=== PATIENT | male | born 1935 | race Hispanic/Latino ===

== ENCOUNTER 2017-10-16 08:57 | Emergency (ER) | payer MEDICARE ==
[2017-10-16 09:05] VITALS: TEMP 97; O2SAT 98; BMI 29.5
--- NOTE | 2017-10-16 10:03 | ED PDOC ---
HPI: General Adult Time Seen by Provider: 10/16/17 09:10 Chief Complaint (Nursing): Dizziness/Lightheaded Chief Complaint (Provider): Dizziness History Per: Patient History/Exam Limitations: no limitations Onset/Duration Of Symptoms: Days (x3), Worse Since (onset) Current Symptoms Are (Timing): Still Present Additional Complaint(s): Anirudh Hazel is a 81 year old male, with a past medical history of hypercholesterolemia and HTN, who presents to the emergency department complaining of a worsening dizziness onset for x3 days. Patient describes symptoms as feeling like his head is empty and a heat wave coming from feet up towards head. Patient reports he had a fall x2 weeks ago with an open wound over his right chin. PMD put steroid cream on wound and states it has been healing well without drainage or redness. Patient takes medication every day and denies any known allergies or toxic habits. He denies any nausea, vomit, changes in appetite, dysuria, chest pain or other medical complaints. PMD: None provided. Past Medical History Reviewed: Historical Data, Nursing Documentation, Vital Signs Vital Signs: Last Vital Signs Temp 97 F L 10/16/17 09:02 Pulse 61 10/16/17 09:02 Resp 24 10/16/17 09:02 BP 179/94 H 10/16/17 09:02 Pulse Ox 98 10/16/17 12:09 - Medical History PMH: HTN, Hypercholesterolemia - Surgical History Surgical History: No Surg Hx - Family History Family History: States: Unknown Family Hx - Social History Ex-Smoker (has not smoked in the last 12 months): Yes Alcohol: Social Drugs: Denies - Home Medications Home Medications: Ambulatory Orders Medication Instructions Recorded Non-Formulary 1 ea TOP ONCE #1 ea 10/16/17 - Allergies Allergies/Adverse Reactions: Allergies Allergy/AdvReac Type Severity Reaction Status Date / Time No Known Allergies Allergy Verified 10/16/17 09:18 Review of Systems ROS Statement: Except As Marked, All Systems Reviewed And Found Negative Cardiovascular: Negative for: Chest Pain Gastrointestinal: Negative for: Nausea, Vomiting, Other (changes in appetite) Genitourinary Male: Negative for: Dysuria Neurological: Positive for: Dizziness Physical Exam - Reviewed Nursing Documentation Reviewed: Yes Vital Signs Reviewed: Yes - Physical Exam Appears: Positive for: No Acute Distress Head Exam: Positive for: ATRAUMATIC, NORMAL INSPECTION, NORMOCEPHALIC Skin: Positive for: Normal Color, Warm, Dry Eye Exam: Positive for: Normal appearance, EOMI, PERRL Neck: Positive for: Painless ROM Cardiovascular/Chest: Positive for: Regular Rate, Rhythm. Negative for: Murmur Respiratory: Positive for: Normal Breath Sounds. Negative for: Respiratory Distress Gastrointestinal/Abdominal: Positive for: Normal Exam, Soft. Negative for: Tenderness Back: Positive for: Normal Inspection Extremity: Positive for: Normal ROM (upper and lower extremities). Negative for : Deformity, Swelling Neurologic/Psych: Positive for: Alert, almond pan finisher II-XII (intact), Oriented, Other ( Romberg's test negative). Negative for: Motor/Sensory Deficits - Laboratory Results Result Diagrams: 10/16/17 10:45 10/16/17 10:45 - ECG O2 Sat by Pulse Oximetry: 98 (RA) Pulse Ox Interpretation: Normal Medical Decision Making Medical Decision Making: Time: 09:10 Initial Impression: Work up for acute dizziness. R/o infectious process. Patient is mildly hypertensive. Initial Plan: --VBG --H-ead w/o contrast [CT] --EKG --CMP --Troponin I --CBC w/ differential --PTT --PT --Chest Portable [RAD] --UA --Reevaluation 10:29 CXR FINDINGS: LUNGS: No active pulmonary disease. PLEURA: No significant pleural effusion identified, no pneumothorax apparent. CARDIOVASCULAR: Normal. OSSEOUS STRUCTURES: No significant abnormalities. VISUALIZED UPPER ABDOMEN: Mammilated left hemidiaphragm. OTHER FINDINGS: None. IMPRESSION: No definite acute cardiopulmonary disease. 11:[address] FINDINGS: HEMORRHAGE: No acute parenchymal, subarachnoid or extra-axial hemorrhage. BRAIN: There appears to be some minimal chronic periventricular white matter ischemic changes. Few tiny chronic appearing basal nuclei lacunar type infarcts may be present as well. . Note that the possibility of a small hyperacute infarct cannot be excluded. Moderate to fairly significant generalized volume loss. Minor vascular calcifications both carotid siphons. VENTRICLES: No obstructive hydrocephalus. CALVARIUM: Calvarium intact PARANASAL SINUSES: Visualized paranasal sinuses are well-developed. Minor mucosal thickening seen within the ethmoid air complex extending superiorly into the inferior margin of the frontal sinus more so on the right side. 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 Minor mucosal thickening left maxillary sinus. The at MASTOID AIR CELLS: Unremarkable as visualized. No inflammatory changes. OTHER FINDINGS: Changes of bilateral cataract surgery. IMPRESSION: No acute intracranial hemorrhage. Suspect minimal chronic periventricular white matter ischemic changes. Few tiny chronic appearing basal nuclei lacunar type infarcts may be present as well. Moderate generalized volume loss. 11:54 -CT and labs are normal. Neuro has been paged waiting fire control mechanic back. 12:[address] Miramontes who recommends CT angio and ASA. If CT angio unremarkable, pt to be discharged with follow up with Dr. Miramontes in office hours on Mon or . If abnormality, pt will be admitted. Spoke to pt and daughter. 14:38 Head/Neck CTA FINDINGS: The aortic arch are widely patent. Some very minimal partially calcified atherosclerotic plaque seen along mid and left parasagittal - inferior margin of the transverse portion of the aortic arch. . Three-vessel arch. Origins of the great vessels widely patent. The common carotid arteries, carotid bifurcations and internal carotid artery is widely patent with no evidence of occlusion, significant stenosis or dissection. The distal internal carotid artery's including the petrous cavernous and supraclinoid segments are widely patent. No evidence of occlusion or significant vertebral arteries are widely patent throughout right-sided which is only slightly larger in caliber/ more dominant than the left side. Basilar artery is also patent. The visualized major branches of the [place] are patent. The A1 and M1 segments are patent and relatively symmetric. . The distal branches of the anterior middle cerebral arteries are also patent. Proximal left M2 branch is slightly asymmetrically larger in caliber than the right . The proximal posterior cerebral arteries are patent. Distal posterior cerebral arteries are not well delineated though appear patent so far as can be seen. No evidence of large aneurysm. Note is made however of a ill-defined area of blush like enhancement along near the cortical surface of the left posterior temporal region near the cortical surface with a prominent appearing adjacent cortical draining vein. The possibility of a small vascular abnormality such as a AVM or dural AV fistula (DAVF) not completely excluded. Clinical correlation recommended. Follow-up pre and post-contrast MRI of the brain recommended for further evaluation. . MRA may be of some benefit is well OTHER FINDINGS: Multilevel degenerative spondylosis of the cervical spine. . IMPRESSION: Unremarkable CTA of the anterior and posterior circulation of the neck. There is a very small ill-defined area of blush like enhancement along near the cortical surface of the left posterior temporal region with a prominent appearing adjacent cortical draining vein. The possibility of a small vascular abnormality such as a AVM or dural AV fistula (DAVF) not completely excluded. Clinical correlation recommended. Follow-up pre and post-contrast MRI of the brain recommended for further evaluation. . MRA may be of some benefit is well 15:30 Upon provider reevaluation patient is feeling better, is medically stable, and requires no further treatment in the ED at this time. Patient will be discharged home with Rx for outpatient MRI. Counseling was provided and all questions were answered regarding diagnosis and need for follow up with Dr. Miramontes. There is agreement to discharge plan. Return if symptoms persist or worsen. ----- Scribe Attestation: Documented by Pancho Katz, acting as a scribe for Reyna Aguirre MD. Provider Scribe Attestation: All medical record entries made by the Scribe were at my direction and personally dictated by me. I have reviewed the chart and agree that the record accurately reflects my personal performance of the history, physical exam, medical decision making, and the department course for this patient. I have also personally directed, reviewed, and agree with the discharge instructions and disposition. Disposition - Clinical Impression Clinical Impression: Dizziness, Dizziness of unknown cause - Disposition Referrals: Edward Miramontes MD [Medical Doctor] - Disposition: Routine/Home Disposition Time: 15:30 Condition: STABLE Additional Instructions: Please call to schedule MRI as on prescription. Call to schedule an appointment with the neurologist, Dr. Miramontes, with the information provided. Return to the emergency department if symptoms worsen or if new symptoms develop (change in vision, weakness, headache, vertigo, dizziness). Prescriptions: Non-Formulary 1 ea TOP ONCE #1 ea Forms: [employer] (Tristanian) Print Language: OCCITAN
--- NOTE | 2017-10-16 10:31 | RAD ---
Date of service: 10/16/2017 HISTORY: possible admission COMPARISON: No prior. FINDINGS: LUNGS: No active pulmonary disease. PLEURA: No significant pleural effusion identified, no pneumothorax apparent. CARDIOVASCULAR: Normal. OSSEOUS STRUCTURES: No significant abnormalities. VISUALIZED UPPER ABDOMEN: Mammilated left hemidiaphragm. OTHER FINDINGS: None. IMPRESSION: No definite acute cardiopulmonary disease.
[2017-10-16 10:50] LABS: VENOUS BLOOD GAS BASE EXCESS 8.3 mmol/L (0.0-2.0); VENOUS BLOOD GAS PCO2 70 mmHg (40-60); VENOUS BLOOD GAS PO2 19 mm/Hg (30-55); VENOUS BLOOD PH 7.33 (7.32-7.43)
[2017-10-16 10:58] LABS: BASO % 0.3 % (0.0-2.0); EOS # 0.1 K/uL (0.0-0.7); EOS % 0.9 % (0.0-4.0); HEMOGLOBIN 16.2 g/dL (12.0-18.0); LYMPH # 3.7 K/uL (1.0-4.3); LYMPH % 42.7 % (20.0-40.0); MEAN CELL VOLUME 93.9 fl (80.0-94.0); MEAN CORPUSCULAR HEMOGLOBIN 31.3 pg (27.0-31.0); MEAN CORPUSCULAR HGB CONC 33.4 g/dL (33.0-37.0); MEAN PLATELET VOLUME 10.2 fl (7.2-11.7); MONO # 0.5 K/uL (0.0-0.8); MONO % 6.2 % (0.0-10.0); NEUT # 4.3 K/uL (1.8-7.0); NEUT % 49.9 % (50.0-75.0); NRBC % 0.1 % (0.0-0.0); RBC 5.18 Mil/uL (4.40-5.90); RED CELL DISTRIBUTION WIDTH 13.8 % (11.5-14.5); WHITE BLOOD COUNT 8.7 K/uL (4.8-10.8)
[2017-10-16 11:02] LABS: PROTHROMBIN TIME 11.5 Seconds (9.8-13.1)
[2017-10-16 11:05] LABS: PARTIAL THROMBOPLASTIN TIME 33.3 Seconds (25.6-37.1)
[2017-10-16 11:06] LABS: ALB/GLOB RATIO 1.4 (1.0-2.1); ALBUMIN 4.6 g/dL (3.5-5.0); ALT/SGPT 37 U/L (21-72); AST/SGOT 26 U/L (17-59); BLOOD UREA NITROGEN 21 mg/dl (9-20); CALCIUM 9.9 mg/dL (8.4-10.2); GFR NON-AFRICAN AMERICAN > 60
--- NOTE | 2017-10-16 11:16 | CT ---
Date of service: 10/16/2017 PROCEDURE: CT HEAD WITHOUT CONTRAST. HISTORY: dizziness for 3 days COMPARISON: No prior study available for comparison TECHNIQUE: Axial computed tomography images were obtained through the head/brain without intravenous contrast. Radiation dose: Total exam DLP = 787.42 mGy-cm. This CT exam was performed using one or more of the following dose reduction techniques: Automated exposure control, adjustment of the mA and/or kV according to patient size, and/or use of iterative reconstruction technique. FINDINGS: HEMORRHAGE: No acute parenchymal, subarachnoid or extra-axial hemorrhage. BRAIN: There appears to be some minimal chronic periventricular white matter ischemic changes. Few tiny chronic appearing basal nuclei lacunar type infarcts may be present as well. . Note that the possibility of a small hyperacute infarct cannot be excluded. Moderate to fairly significant generalized volume loss. Minor vascular calcifications both carotid siphons. VENTRICLES: No obstructive hydrocephalus. CALVARIUM: Calvarium intact PARANASAL SINUSES: Visualized paranasal sinuses are well-developed. Minor mucosal thickening seen within the ethmoid air complex extending superiorly into the inferior margin of the frontal sinus more so on the right side. 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 Minor mucosal thickening left maxillary sinus. The at MASTOID AIR CELLS: Unremarkable as visualized. No inflammatory changes. OTHER FINDINGS: Changes of bilateral cataract surgery. IMPRESSION: No acute intracranial hemorrhage. Suspect minimal chronic periventricular white matter ischemic changes. Few tiny chronic appearing basal nuclei lacunar type infarcts may be present as well. Moderate generalized volume loss.
[2017-10-16 11:46] LABS: URINE BILIRUBIN NEGATIVE (NEGATIVE); URINE BLOOD NEGATIVE (NEGATIVE); URINE CLARITY CLEAR (Clear); URINE COLOR YELLOW (YELLOW); URINE GLUCOSE (UA) NEG (Normal); URINE LEUKOCYTE ESTERASE NEG Leu/uL (Negative); URINE PROTEIN NEGATIVE (NEGATIVE); URINE UROBILINOGEN 0.2-1.0 mg/dL (0.2-1.0)
[2017-10-16] MEDS ORDERED: Sodium Chloride 0.9% 1,000 ML IV STA (12:11)
[2017-10-16] MEDS ORDERED: Iodixanol 320 MG/ML 100 ML BOTTLE IV ONE (12:48)
[2017-10-16] MEDS ORDERED: Sodium Chloride 0.9% 50 ML IV ONE (12:49)
--- NOTE | 2017-10-16 14:40 | CT ---
Date of service: 10/16/2017 PROCEDURE: CT Angiography of the neck and brain HISTORY: Dizziness for 3 days COMPARISON: Comparison made with prior CT scan brain earlier same day TECHNIQUE: Contiguous axial images of the neck and brain were obtained from the level of the vertex to the superior mediastinum in the arteriographic phase of enhancement. Coronal and sagittal reformats or also generated. IV contrast dose: 99 cc Visipaque 320 Radiation Dose - DLP: 485.95 mGy-cm This CT exam was performed using one or more of the following dose reduction techniques: Automated exposure control, adjustment of the mA and/or kV according to patient size, and/or use of iterative reconstruction technique. FINDINGS: The aortic arch are widely patent. Some very minimal partially calcified atherosclerotic plaque seen along mid and left parasagittal - inferior margin of the transverse portion of the aortic arch. . Three-vessel arch. Origins of the great vessels widely patent. The common carotid arteries, carotid bifurcations and internal carotid artery is widely patent with no evidence of occlusion, significant stenosis or dissection. The distal internal carotid artery's including the petrous cavernous and supraclinoid segments are widely patent. No evidence of occlusion or significant vertebral arteries are widely patent throughout right-sided which is only slightly larger in caliber/ more dominant than the left side. Basilar artery is also patent. The visualized major branches of the [place] are patent. The A1 and M1 segments are patent and relatively symmetric. . The distal branches of the anterior middle cerebral arteries are also patent. Proximal left M2 branch is slightly asymmetrically larger in caliber than the right . The proximal posterior cerebral arteries are patent. Distal posterior cerebral arteries are not well delineated though appear patent so far as can be seen. No evidence of large aneurysm. Note is made however of a ill-defined area of blush like enhancement along near the cortical surface of the left posterior temporal region near the cortical surface with a prominent appearing adjacent cortical draining vein. The possibility of a small vascular abnormality such as a AVM or dural AV fistula (DAVF) not completely excluded. Clinical correlation recommended. Follow-up pre and post-contrast MRI of the brain recommended for further evaluation. . MRA may be of some benefit is well OTHER FINDINGS: Multilevel degenerative spondylosis of the cervical spine. . IMPRESSION: Unremarkable CTA of the anterior and posterior circulation of the neck. There is a very small ill-defined area of blush like enhancement along near the cortical surface of the left posterior temporal region with a prominent appearing adjacent cortical draining vein. The possibility of a small vascular abnormality such as a AVM or dural AV fistula (DAVF) not completely excluded. Clinical correlation recommended. Follow-up pre and post-contrast MRI of the brain recommended for further evaluation. . MRA may be of some benefit is well
[2017-10-16 15:53] VITALS: BP 160/88; PULSE 68; RESP 20
--- NOTE | 2017-10-16 18:11 | CARD ---
APPROVED REPORT Date of service: 10/16/2017 <Conclusion> Sinus bradycardia Incomplete right bundle branch block Borderline ECG
== END 2017-10-16 15:48 | disposition home or self-care (01) ==
LOC: H.ER 08:57
DX: R42 Dizziness and giddiness (principal); I10 Essential (primary) hypertension; E78.00 Pure hypercholesterolemia, unspecified; Z87.891 Personal history of nicotine dependence
CPT/HCPCS: 70450; 70496; 70498; 71045; 80053; 81003; 82803; 84484; 85025; 85610; 85730; 93005; 99285; J7030; Q9967